=== PATIENT | female | born 1940 | race Caucasian/White ===

== ENCOUNTER 2017-01-30 09:44 | Emergency (ER) | payer OTHER ==
[~2017-01-30] VITALS: Ht 157.5 cm; Wt 78.0 kg
[2017-01-30 10:52] LABS: BASOPHIL % 0.3 % (0-2); PLATELET COUNT 288 x10^3mcL (130-400); RED CELL DISTRIBUTION WIDTH 13.4 % (11.5-14.5)
[2017-01-30 11:01] LABS: CALCIUM 8.6 mg/dL (8.5-10.1); CARBON DIOXIDE 28.8 mmol/L (21-32); CHLORIDE SERUM 99 mmol/L (98-107); CREATININE SERUM 0.7 mg/dL (0.6-1.0); GLUCOSE SERUM 105 mg/dL (74-106); POTASSIUM SERUM 3.8 mmol/L (3.5-5.1); SODIUM SERUM 136 mmol/L (136-145)
[2017-01-30 11:13] LABS: CK-MB 0.5 ng/mL (0-3.6)
[2017-01-30 11:14] LABS: ALKALINE PHOSPHATASE 78 U/L (46-116); ALT/SGPT 20 U/L (14-59); AST/SGOT 19 U/L (15-37); BILIRUBIN TOTAL 0.5 mg/dL (0.20-1.00); T4(THYROXINE) 10.3 ug/dL (4.7-13.3); TOTAL PROTEIN, SERUM 7.3 g/dL (6.4-8.2)
[2017-01-30 12:44] VITALS: BP 136/90
[2017-01-30 12:54] LABS: AMPHETAMINE QUAL UR NONE DETECTED (NEG <=1000)
== END 2017-01-30 12:44 | disposition home or self-care (01) ==
LOC: ED 09:44
PROVIDERS: Emergency Medicine
DX: J44.1 Chronic obstructive pulmonary disease with (acute) exacerbation (principal); K21.9 Gastro-esophageal reflux disease without esophagitis; M19.90 Unspecified osteoarthritis, unspecified site; Z87.19 Personal history of other diseases of the digestive system; Z79.51 Long term (current) use of inhaled steroids; Z79.899 Other long term (current) drug therapy
CPT/HCPCS: 36600; 83880; J7613; J7644